=== PATIENT | female | born 1965 | race Caucasian/White ===

== ENCOUNTER → 2019-01-28 | Outpatient (CLI) | payer OTHER ==
[~2019-01-28] MED LIST: ALLEGRA180 MG PO; ESTRACE0.5 MG PO; EXCEDRIN CAPLE1 EACH PO; MULTIVITAMINS PO; NAPROSYN500 MG PO; NIFEREX100 MG/5 M PO; NORCO 5-325 TA1 EACH PO; WELLBUTRIN SR150 MG PO
== END ==
LOC: CAT 11:23
DX: Z13.6 Encounter for screening for cardiovascular disorders (principal); E78.00 Pure hypercholesterolemia, unspecified; I25.10 Atherosclerotic heart disease of native coronary artery without angina pectoris

== ENCOUNTER → 2019-01-28 | Outpatient (CLI) | payer BC, OTHER | LOC: NUC 11:24 | DX: Z13.820 Encounter for screening for osteoporosis (principal); Z78.0 Asymptomatic menopausal state ==